=== PATIENT | female | born 1955 | race Hispanic/Latino ===

== ENCOUNTER 2023-08-29 19:53 | Emergency (ER) | payer OTHER ==
[~2023-08-29] VITALS: Ht 154.9 cm; Wt 62.1 kg
[2023-08-29 21:03] VITALS: BP 118/68; PULSE 90; RESP 17; O2SAT 96
[2023-08-29] MEDS ORDERED: IBUP-1493 PO (21:09)
[2023-08-29] MEDS ORDERED: LIDOCAINE HCL 1% 20 ML VIAL ONE (21:11)
[2023-08-29] MEDS ORDERED: LIDOCAINE HCL-MPF 1% 2ML VIAL IJ STA (21:21)
== END 2023-08-29 21:27 | disposition home or self-care (01) ==
LOC: EDH 19:53
DX: S01.81XA Laceration without foreign body of other part of head, initial encounter (principal); E11.9 Type 2 diabetes mellitus without complications; W01.0XXA Fall on same level from slipping, tripping and stumbling without subsequent striking against object, initial encounter; Y93.89 Activity, other specified; Y92.89 Other specified places as the place of occurrence of the external cause; Y99.8 Other external cause status
CPT/HCPCS: 12002; 70450; 72125

== ENCOUNTER 2023-09-05 08:46 | Emergency (ER) | payer OTHER ==
[~2023-09-05] VITALS: Ht 167.6 cm; Wt 61.7 kg
[~2023-09-05 08:46] MED LIST: IBUP-1493 PO
[2023-09-05 10:03] VITALS: BP 124/74; PULSE 74; RESP 18; O2SAT 99
== END 2023-09-05 10:04 | disposition home or self-care (01) ==
LOC: EDH 08:46
DX: S01.01XD Laceration without foreign body of scalp, subsequent encounter (principal); E11.9 Type 2 diabetes mellitus without complications; Z48.02 Encounter for removal of sutures; X58.XXXD Exposure to other specified factors, subsequent encounter
CPT/HCPCS: 99281

== ENCOUNTER 2024-04-25 10:13 | Emergency (ER) | payer MEDICAID, OTHER ==
[~2024-04-25] VITALS: Ht 152.4 cm; Wt 64.4 kg
[2024-04-25] MEDS ORDERED: CEPH500T PO (11:31)
[2024-04-25] MEDS ORDERED: IBUP-2070 PO (11:31)
[2024-04-25] MEDS: CEPHALEXIN 500 MG CAPSULE PO ONE (11:46)
[2024-04-25] MEDS: HYDROCODONE/ACETAMINOPHEN 5/325 MG TAB PO ONE (11:47)
[2024-04-25 12:08] VITALS: BP 121/72; PULSE 72; RESP 16; O2SAT 98
== END 2024-04-25 12:46 | disposition home or self-care (01) ==
LOC: EDH 10:13
DX: L60.0 Ingrowing nail (principal); E11.9 Type 2 diabetes mellitus without complications; Z98.890 Other specified postprocedural states